=== PATIENT | female | born 1980 | race Caucasian/White ===

== ENCOUNTER 2021-08-04 10:51 | Inpatient (IN) ==
[2021-08-04 11:15] LABS: Hematocrit 43.6 % (35.3-44.9); Hemoglobin 14.3 g/dL (11.5-15.4); Mean Corpuscular HGB Conc 32.8 g/dL (31.6-35.5); Mean Corpuscular Hemoglobin 29.6 pg (28.0-33.3); Mean Corpuscular Volume 90.3 fL (83.0-100.0); Mean Platelet Volume 9.2 fL (9.4-12.4); Platelet Count 446 K/mcL (140-400); Red Blood Count 4.83 M/mcL (3.82-4.97); Red Cell Distribution Width 13.8 % (11.5-14.5); Segmented Neutrophils % 69.5 %; White Blood Count 11.2 K/mcL (4.3-11.1)
[2021-08-04 11:16] LABS: Basophils # 0.1 K/mcL (0.0-0.2); Basophils % 0.4 %; Eosinophils # 0.1 K/mcL (0.0-0.6); Eosinophils % 0.9 %; Immature Granulocytes % 0.2 % (0-4); Lymphocytes # 2.5 K/mcL (0.6-4.6); Lymphocytes % 22.7 %; Monocytes # 0.7 K/mcL (0.0-1.3); Monocytes % 6.3 %; Neutrophils # 7.8 K/mcL (1.6-8.9)
[2021-08-04 11:35] LABS: Acetaminophen < 10 mcg/mL (10-20); BUN/Creatinine Ratio 5 (6-26); Blood Urea Nitrogen 4 mg/dL (6-20); Calcium 8.2 mg/dL (8.6-10.3); Carbon Dioxide 22 mEq/L (23-29); Chloride 100 mEq/L (98-107); Ethanol < 10 mg/dL (Less than 10); Glucose 157 mg/dL (70-105); Osmolality,Calculated 286 (280-300); Potassium 3.2 mEq/L (3.5-5.1); Salicylate < 2.5 mg/dL (15.0-30.0); Sodium 138 mEq/L (136-145); eGFR For African Americans > 60 (> 60); eGFR For Non-African Americans > 60 (> 60)
[2021-08-04 11:48] LABS: Amphetamine Screen,Urine Negative ng/mL (Cutoff=1000); Barbiturate Screen,Urine Negative ng/mL (Cutoff=200); Benzodiazepines Screen,Urine Negative ng/mL (Cutoff=200); Cannabinoid Screen,Urine Negative ng/mL (Cutoff = 50); Cocaine Screen,Urine Negative ng/mL (Cutoff= 300); Opiate Screen,Urine Negative ng/mL (Cutoff=300); Phencyclidine Screen,Urine Negative ng/mL (Cutoff=25)
[2021-08-04 11:49] LABS: Bacteria,Urine Few per hpf (None-Few); Bilirubin,Urine Negative (Negative); Blood,Urine Trace (Negative); Clarity,Urine Turbid (Clear); Color,Urine Yellow (Yellow); Glucose,Urine (UA) 30 mg/dL (Normal); Ketones,Urine Negative (Negative); Leukocyte Esterase,Urine Large (Negative); Mucus,Urine Few per lpf (None-Few); Nitrite,Urine Negative (Negative); PH,Urine 6.5 pH Units (5.0-8.0); Protein,Urine >=300 mg/dL (Neg-Trace); Squamous Epithelial Cell,Urine Many per hpf (None-Few); WBC,Urine 50-100 per hpf (0-3)
[2021-08-04] MEDS ORDERED: Sulfamethoxazole/Trimeth DS 1 EACH TABLET PO ONE (12:00)
[2021-08-04 16:23] LABS: Influenza A PCR Negative (Negative); Influenza B PCR Negative (Negative); Resp. Syncytial Virus PCR Negative (Negative)
[2021-08-04 16:24] LABS: SARS-CoV-2 by PCR (In House) Positive (Negative)
[2021-08-04] MEDS ORDERED: Naloxone 0.4 MG/ML INJ IVP PRN (19:46)
[2021-08-04] MEDS ORDERED: Melatonin 3 MG TABLET PO PRN (19:46)
[2021-08-04] MEDS ORDERED: D5% in Water 1,000 ML IVC PRN (20:44)
[2021-08-04] MEDS ORDERED: Dextrose 4 GM Chewable Tablets PO PRN ×2 (20:44)
[2021-08-04] MEDS ORDERED: *HR* Dextrose 50 % in Water (Syg) 50 ML SYRINGE IVP PRN (20:44)
[2021-08-04] MEDS: Insulin LISPRO 300 UNITS/3 ML VIAL SUBQ SCH (22:43)
[2021-08-04] MEDS: Ondansetron ODT 4 MG TAB.RAPDIS SL PRN (22:48)
[2021-08-05 02:22] LABS: Hematocrit 37.3 % (35.3-44.9); Mean Corpuscular HGB Conc 33.2 g/dL (31.6-35.5); Mean Corpuscular Hemoglobin 29.5 pg (28.0-33.3); Mean Corpuscular Volume 88.6 fL (83.0-100.0); Mean Platelet Volume 9.2 fL (9.4-12.4); Platelet Count 355 K/mcL (140-400); Red Blood Count 4.21 M/mcL (3.82-4.97); Red Cell Distribution Width 13.8 % (11.5-14.5); White Blood Count 11.9 K/mcL (4.3-11.1)
[2021-08-05 02:26] LABS: Hemoglobin 12.4 g/dL (11.5-15.4)
[2021-08-05 03:20] LABS: BUN/Creatinine Ratio 7 (6-26); Blood Urea Nitrogen 5 mg/dL (6-20); Calcium 7.3 mg/dL (8.6-10.3); Carbon Dioxide 24 mEq/L (23-29); Chloride 103 mEq/L (98-107); Cholesterol 239 mg/dL (< 200); Glucose 144 mg/dL (70-105); HDL Cholesterol 34 mg/dL (40-59); LDL Cholesterol,Calculated 162 mg/dL (< 100); Magnesium 1.2 mg/dL (1.6-2.6); Osmolality,Calculated 288 (280-300); Phosphorous 3.4 mg/dL (2.7-4.5); Sodium 139 mEq/L (136-145); Triglycerides 213 mg/dL (< 150); eGFR For African Americans > 60 (> 60); eGFR For Non-African Americans > 60 (> 60)
[2021-08-05] MEDS ORDERED: *HR* Heparin 5,000 UNIT/ML VIAL ONE (04:25)
[2021-08-05] MEDS: *HR* Heparin 5,000 UNIT/ML VIAL SQ SCH ×2 (04:30→17:30)
[2021-08-05] MEDS: Ondansetron ODT 4 MG TAB.RAPDIS SL PRN (05:51)
[2021-08-05] MEDS: Acetaminophen 325 MG TABLET PO PRN (08:25)
[2021-08-05] MEDS: levoFLOXacin 750 MG TABLET PO SCH (08:25)
[2021-08-05] MEDS: clonazePAM 1 MG TABLET PO SCH ×3 (08:26→19:52)
[2021-08-05] MEDS: Metoprolol XL (24 HR) Succ 25 MG TAB.ER.24H PO SCH (08:26)
[2021-08-05] MEDS: Loratadine 10 MG TABLET PO SCH (08:27)
[2021-08-05] MEDS: Insulin LISPRO 300 UNITS/3 ML VIAL SUBQ SCH ×4 (08:28→19:44)
[2021-08-05] MEDS ORDERED: Sulfamethoxazole/Trimeth DS 1 EACH TABLET PO SCH (09:00)
[2021-08-05] MEDS ORDERED: Metoprolol XL (24 HR) Succ 25 MG TAB.ER.24H PO SCH (09:00)
[2021-08-05] MEDS: *HR* OxyCODONE Immed Rel 5 MG TABLET PO PRN (12:37)
[2021-08-05] MEDS ORDERED: rOPINIRole 1 MG TABLET PO PRN (15:05)
[2021-08-05] MEDS ORDERED: Diphenoxylate/Atropine 1 TAB TABLET PO PRN (15:05)
[2021-08-05] MEDS: Pregabalin 75 MG CAPSULE PO SCH (19:44)
[2021-08-06] MEDS: *HR* HYDROcodone/Acet 5/325 mg TABLET PO PRN ×2 (04:57→19:31)
[2021-08-06] MEDS: *HR* Heparin 5,000 UNIT/ML VIAL SQ SCH ×2 (04:58→17:19)
[2021-08-06 07:32] LABS: Basophils # 0.1 K/mcL (0.0-0.2); Basophils % 0.6 %; Eosinophils # 0.2 K/mcL (0.0-0.6); Eosinophils % 2.3 %; Hematocrit 38.2 % (35.3-44.9); Hemoglobin 12.1 g/dL (11.5-15.4); Immature Granulocytes % 0.4 % (0-4); Lymphocytes # 2.1 K/mcL (0.6-4.6); Lymphocytes % 21.8 %; Mean Corpuscular HGB Conc 31.7 g/dL (31.6-35.5); Mean Corpuscular Hemoglobin 29.2 pg (28.0-33.3); Monocytes # 0.9 K/mcL (0.0-1.3); Monocytes % 9.5 %; Neutrophils # 6.3 K/mcL (1.6-8.9); Platelet Count 290 K/mcL (140-400); Red Blood Count 4.15 M/mcL (3.82-4.97); Red Cell Distribution Width 14.2 % (11.5-14.5); Segmented Neutrophils % 65.4 %; White Blood Count 9.6 K/mcL (4.3-11.1)
[2021-08-06 07:38] LABS: BUN/Creatinine Ratio 8 (6-26); Blood Urea Nitrogen 6 mg/dL (6-20); Calcium 7.6 mg/dL (8.6-10.3); Carbon Dioxide 22 mEq/L (23-29); Chloride 104 mEq/L (98-107); Glucose 145 mg/dL (70-105); Magnesium 1.5 mg/dL (1.6-2.6); Osmolality,Calculated 280 (280-300); Potassium 3.4 mEq/L (3.5-5.1); Sodium 135 mEq/L (136-145); eGFR For African Americans > 60 (> 60); eGFR For Non-African Americans > 60 (> 60)
[2021-08-06] MEDS: Insulin LISPRO 300 UNITS/3 ML VIAL SUBQ SCH ×4 (08:48→21:21)
[2021-08-06] MEDS: levoFLOXacin 750 MG TABLET PO SCH (09:20)
[2021-08-06] MEDS: Metoprolol XL (24 HR) Succ 25 MG TAB.ER.24H PO SCH (09:20)
[2021-08-06] MEDS: Loratadine 10 MG TABLET PO SCH (09:21)
[2021-08-06] MEDS: Pregabalin 75 MG CAPSULE PO SCH ×2 (09:21→19:31)
[2021-08-06] MEDS: Magnesium Oxide 400 MG TABLET PO SCH ×2 (09:21→19:30)
[2021-08-06] MEDS: clonazePAM 1 MG TABLET PO SCH ×3 (09:21→19:31)
[2021-08-06] MEDS: Cholecalciferol (D-3) 1,000 UNIT (25MCG) TABLET PO SCH (09:21)
[2021-08-07] MEDS: *HR* Heparin 5,000 UNIT/ML VIAL SQ SCH ×2 (05:32→16:44)
[2021-08-07 06:15] LABS: BUN/Creatinine Ratio 11 (6-26); Blood Urea Nitrogen 10 mg/dL (6-20); Calcium 8.2 mg/dL (8.6-10.3); Carbon Dioxide 24 mEq/L (23-29); Chloride 105 mEq/L (98-107); Glucose 146 mg/dL (70-105); Magnesium 1.7 mg/dL (1.6-2.6); Osmolality,Calculated 288 (280-300); Phosphorous 3.5 mg/dL (2.7-4.5); Potassium 4.2 mEq/L (3.5-5.1); Sodium 138 mEq/L (136-145); eGFR For African Americans > 60 (> 60); eGFR For Non-African Americans > 60 (> 60)
[2021-08-07] MEDS: Metoprolol XL (24 HR) Succ 25 MG TAB.ER.24H PO SCH (09:17)
[2021-08-07] MEDS: clonazePAM 1 MG TABLET PO SCH ×3 (09:17→20:24)
[2021-08-07] MEDS: levoFLOXacin 750 MG TABLET PO SCH (09:18)
[2021-08-07] MEDS: Pregabalin 75 MG CAPSULE PO SCH ×2 (09:18→20:23)
[2021-08-07] MEDS: Magnesium Oxide 400 MG TABLET PO SCH ×2 (09:19→20:24)
[2021-08-07] MEDS: Loratadine 10 MG TABLET PO SCH (09:19)
[2021-08-07] MEDS: Cholecalciferol (D-3) 1,000 UNIT (25MCG) TABLET PO SCH (09:19)
[2021-08-07] MEDS: Insulin LISPRO 300 UNITS/3 ML VIAL SUBQ SCH ×4 (09:20→20:24)
[2021-08-07] MEDS: *HR* OxyCODONE Immed Rel 5 MG TABLET PO PRN ×2 (09:48)
[2021-08-07] MEDS: Furosemide 40 MG TABLET PO SCH (20:24)
[2021-08-07] MEDS: Sennosides/Docusate Sodium TABLET PO SCH (20:24)
[2021-08-08] MEDS: *HR* Heparin 5,000 UNIT/ML VIAL SQ SCH ×2 (04:51→17:22)
[2021-08-08] MEDS: Insulin LISPRO 300 UNITS/3 ML VIAL SUBQ SCH ×4 (09:18→21:39)
[2021-08-08] MEDS: clonazePAM 1 MG TABLET PO SCH ×3 (09:20→21:39)
[2021-08-08] MEDS: Pregabalin 75 MG CAPSULE PO SCH ×2 (09:20→21:38)
[2021-08-08] MEDS: Loratadine 10 MG TABLET PO SCH (09:21)
[2021-08-08] MEDS: Metoprolol XL (24 HR) Succ 25 MG TAB.ER.24H PO SCH (09:21)
[2021-08-08] MEDS: Furosemide 40 MG TABLET PO SCH (09:21)
[2021-08-08] MEDS: Sennosides/Docusate Sodium TABLET PO SCH ×2 (09:22→21:38)
[2021-08-08] MEDS: levoFLOXacin 750 MG TABLET PO SCH (09:22)
[2021-08-08] MEDS: Magnesium Oxide 400 MG TABLET PO SCH ×2 (09:22→21:39)
[2021-08-08] MEDS: Cholecalciferol (D-3) 1,000 UNIT (25MCG) TABLET PO SCH (09:23)
[2021-08-09] MEDS: *HR* Heparin 5,000 UNIT/ML VIAL SQ SCH ×2 (06:12→17:02)
[2021-08-09] MEDS: Insulin LISPRO 300 UNITS/3 ML VIAL SUBQ SCH ×4 (07:22→19:23)
[2021-08-09] MEDS: Pregabalin 75 MG CAPSULE PO SCH ×2 (08:50→19:22)
[2021-08-09] MEDS: Metoprolol XL (24 HR) Succ 25 MG TAB.ER.24H PO SCH (08:50)
[2021-08-09] MEDS: Cholecalciferol (D-3) 1,000 UNIT (25MCG) TABLET PO SCH (08:50)
[2021-08-09] MEDS: clonazePAM 1 MG TABLET PO SCH ×3 (08:50→19:22)
[2021-08-09] MEDS: Sennosides/Docusate Sodium TABLET PO SCH ×2 (08:50→19:22)
[2021-08-09] MEDS: Loratadine 10 MG TABLET PO SCH (08:50)
[2021-08-09] MEDS: Magnesium Oxide 400 MG TABLET PO SCH ×2 (08:51→19:23)
[2021-08-09] MEDS: Furosemide 40 MG TABLET PO SCH (08:51)
[2021-08-09] MEDS: Acetaminophen 325 MG TABLET PO PRN (12:13)
[2021-08-09] MEDS: *HR* HYDROcodone/Acet 5/325 mg TABLET PO PRN (23:09)
[2021-08-10] MEDS: *HR* Heparin 5,000 UNIT/ML VIAL SQ SCH ×2 (05:08→17:32)
[2021-08-10] MEDS: Insulin LISPRO 300 UNITS/3 ML VIAL SUBQ SCH ×4 (09:05→20:32)
[2021-08-10] MEDS: clonazePAM 1 MG TABLET PO SCH ×3 (09:05→20:39)
[2021-08-10] MEDS: Metoprolol XL (24 HR) Succ 25 MG TAB.ER.24H PO SCH (09:06)
[2021-08-10] MEDS: Loratadine 10 MG TABLET PO SCH (09:06)
[2021-08-10] MEDS: Furosemide 40 MG TABLET PO SCH (09:07)
[2021-08-10] MEDS: Magnesium Oxide 400 MG TABLET PO SCH ×2 (09:07→20:40)
[2021-08-10] MEDS: Cholecalciferol (D-3) 1,000 UNIT (25MCG) TABLET PO SCH (09:07)
[2021-08-10] MEDS: Pregabalin 75 MG CAPSULE PO SCH ×2 (09:07→20:39)
[2021-08-10] MEDS: Sennosides/Docusate Sodium TABLET PO SCH ×2 (09:07→20:39)
[2021-08-11] MEDS: *HR* Heparin 5,000 UNIT/ML VIAL SQ SCH (04:53)
[2021-08-11 06:20] VITALS: BP 123/73
[2021-08-11] MEDS: Metoprolol XL (24 HR) Succ 25 MG TAB.ER.24H PO SCH (09:55)
[2021-08-11] MEDS: Magnesium Oxide 400 MG TABLET PO SCH (09:56)
[2021-08-11] MEDS: Loratadine 10 MG TABLET PO SCH (09:57)
[2021-08-11] MEDS: Sennosides/Docusate Sodium TABLET PO SCH (09:58)
[2021-08-11] MEDS: clonazePAM 1 MG TABLET PO SCH ×2 (09:58→14:07)
[2021-08-11] MEDS: Furosemide 40 MG TABLET PO SCH (09:58)
[2021-08-11] MEDS: Pregabalin 75 MG CAPSULE PO SCH (09:58)
[2021-08-11] MEDS: Cholecalciferol (D-3) 1,000 UNIT (25MCG) TABLET PO SCH (09:58)
[2021-08-11 10:43] VITALS: PULSE 114; TEMP 97.6; O2SAT 96
[2021-08-11] MEDS: Insulin LISPRO 300 UNITS/3 ML VIAL SUBQ SCH ×2 (11:11→14:08)
== END 2021-08-11 18:39 | DRG 137 ==
LOC: EMEROOARM 10:51 → 3BNU 19:39 → SUATTDRO 19:39 → 3BNU 22:18
PROVIDERS: ADMIT Family Medicine; ATTEND Internal Medicine

== ENCOUNTER 2021-10-04 19:16 | Observation (INO) ==
[2021-10-04 20:09] LABS: Basophils # 0.1 K/mcL (0.0-0.2); Basophils % 0.4 %; Eosinophils # 0.1 K/mcL (0.0-0.6); Eosinophils % 0.4 %; Hematocrit 38.3 % (35.3-44.9); Hemoglobin 12.7 g/dL (11.5-15.4); Immature Granulocytes % 0.4 % (0-4); Lymphocytes # 2.5 K/mcL (0.6-4.6); Lymphocytes % 15.2 %; Mean Corpuscular HGB Conc 33.2 g/dL (31.6-35.5); Mean Corpuscular Hemoglobin 28.9 pg (28.0-33.3); Mean Corpuscular Volume 87.2 fL (83.0-100.0); Mean Platelet Volume 9.2 fL (9.4-12.4); Monocytes # 0.8 K/mcL (0.0-1.3); Monocytes % 4.5 %; Neutrophils # 13.3 K/mcL (1.6-8.9); Platelet Count 378 K/mcL (140-400); Red Blood Count 4.39 M/mcL (3.82-4.97); Red Cell Distribution Width 13.4 % (11.5-14.5); Segmented Neutrophils % 79.1 %; White Blood Count 16.7 K/mcL (4.3-11.1)
[2021-10-04 20:41] LABS: Bilirubin,Urine Negative (Negative); Blood,Urine Negative (Negative); Clarity,Urine Clear (Clear); Color,Urine Yellow (Yellow); Glucose,Urine (UA) Normal (Normal); Hyaline Casts,Urine Few per lpf (None Seen); Ketones,Urine Trace mg/dL (Negative); Leukocyte Esterase,Urine Small (Negative); Mucus,Urine Few per lpf (None-Few); Nitrite,Urine Negative (Negative); PH,Urine 6.5 pH Units (5.0-8.0); Protein,Urine 200 mg/dL (Neg-Trace); RBC,Urine 0-3 per hpf (0-3); Specific Gravity,Urine 1.022 (1.010-1.025); Squamous Epithelial Cell,Urine Moderate per hpf (None-Few); Urobilinogen,Urine Normal (Normal)
[2021-10-04 20:59] LABS: Amphetamine Screen,Urine Negative ng/mL (Cutoff=1000); Barbiturate Screen,Urine Negative ng/mL (Cutoff=200); Benzodiazepines Screen,Urine Negative ng/mL (Cutoff=200); Cannabinoid Screen,Urine Negative ng/mL (Cutoff = 50); Cocaine Screen,Urine Negative ng/mL (Cutoff= 300); Opiate Screen,Urine Negative ng/mL (Cutoff=300); Phencyclidine Screen,Urine Negative ng/mL (Cutoff=25)
[2021-10-04 21:23] LABS: Acetaminophen < 10 mcg/mL (10-20); BUN/Creatinine Ratio 13 (6-26); Blood Urea Nitrogen 11 mg/dL (6-20); Carbon Dioxide 19 mEq/L (23-29); Chloride 104 mEq/L (98-107); Ethanol < 10 mg/dL (Less than 10); Glucose 199 mg/dL (70-105); Osmolality,Calculated 295 (280-300); Potassium 3.1 mEq/L (3.5-5.1); Salicylate < 2.5 mg/dL (15.0-30.0); Sodium 140 mEq/L (136-145); eGFR For African Americans > 60 (> 60); eGFR For Non-African Americans > 60 (> 60)
[2021-10-04] MEDS ORDERED: Isovue-370 500 ML BOTTLE IVP ONE (22:13)
[2021-10-04 23:09] LABS: Alanine Aminotransferase 19 Units/L (7-52); Alkaline Phosphatase 69 Units/L (34-104); Aspartate Amino Transferase 24 Units/L (13-39); Bilirubin,Indirect 0.6 mg/dL (0.0-1.0); Bilirubin,Total 0.6 mg/dL (0.3-1.0); Globulin 3.9 g/dL (2.4-3.5); Lipase 20 Units/L (11-82); Total Protein 7.9 g/dL (6.4-8.9)
[2021-10-05 00:50] LABS: Troponin I < 0.03 ng/mL (< 0.04)
[2021-10-05] MEDS ORDERED: levoFLOXacin 750 MG TABLET PO ONE (03:36)
[2021-10-05 03:46] LABS: Influenza A PCR Negative (Negative); Influenza B PCR Negative (Negative); Resp. Syncytial Virus PCR Negative (Negative); SARS-CoV-2 by PCR (In House) Negative (Negative)
[2021-10-05 06:18] LABS: VBG HCO3 23 mEq/L (21-27); VBG PCO2 34 mmHg (41-51); VBG PH 7.44 pH Units (7.32-7.42); VBG PO2 141 mmHg (25-50)
[2021-10-05] MEDS ORDERED: Naloxone 0.4 MG/ML INJ IVP PRN (08:11)
[2021-10-05] MEDS ORDERED: 0.9 % Sodium Chloride w KCl 20 MEQ/1,000 ML MLS IVC SCH (08:15)
[2021-10-05 09:06] LABS: Basophils # 0.1 K/mcL (0.0-0.2); Basophils % 0.4 %; Eosinophils % 0.3 %; Hematocrit 36.8 % (35.3-44.9); Hemoglobin 12.4 g/dL (11.5-15.4); Immature Granulocytes % 0.4 % (0-4); Lymphocytes # 2.7 K/mcL (0.6-4.6); Lymphocytes % 19.4 %; Mean Corpuscular HGB Conc 33.7 g/dL (31.6-35.5); Mean Corpuscular Hemoglobin 29.2 pg (28.0-33.3); Mean Corpuscular Volume 86.8 fL (83.0-100.0); Mean Platelet Volume 9.1 fL (9.4-12.4); Monocytes # 0.8 K/mcL (0.0-1.3); Monocytes % 5.5 %; Neutrophils # 10.2 K/mcL (1.6-8.9); Platelet Count 386 K/mcL (140-400); Red Blood Count 4.24 M/mcL (3.82-4.97); Red Cell Distribution Width 13.3 % (11.5-14.5); White Blood Count 13.7 K/mcL (4.3-11.1)
[2021-10-05] MEDS ORDERED: D5% in Water 1,000 ML IVC PRN (09:56)
[2021-10-05] MEDS ORDERED: *HR* Dextrose 50 % in Water (Syg) 50 ML SYRINGE IVP PRN (09:56)
[2021-10-05] MEDS ORDERED: Dextrose 4 GM Chewable Tablets PO PRN ×2 (09:56)
[2021-10-05] MEDS: Metoprolol XL (24 HR) Succ 25 MG TAB.ER.24H PO SCH (09:58)
[2021-10-05] MEDS: 0.9 % Sodium Chloride 1,000 ML IVC SCH (09:59)
[2021-10-05] MEDS ORDERED: cefTRIAXone 1,000 MG in 0.9 % Sodium Chloride Mini Bag 100 ML IVPB SCH (10:00)
[2021-10-05 10:34] LABS: Alanine Aminotransferase 18 Units/L (7-52); Albumin 3.8 g/dL (3.5-5.7); Alkaline Phosphatase 67 Units/L (34-104); Aspartate Amino Transferase 25 Units/L (13-39); BUN/Creatinine Ratio 12 (6-26); Bilirubin,Total 0.6 mg/dL (0.3-1.0); Blood Urea Nitrogen 9 mg/dL (6-20); Calcium 7.6 mg/dL (8.6-10.3); Carbon Dioxide 22 mEq/L (23-29); Chloride 104 mEq/L (98-107); Globulin 3.7 g/dL (2.4-3.5); Glucose 128 mg/dL (70-105); Magnesium 0.9 mg/dL (1.6-2.6); Osmolality,Calculated 288 (280-300); Phosphorous 4.9 mg/dL (2.7-4.5); Potassium 3.5 mEq/L (3.5-5.1); Sodium 139 mEq/L (136-145); Total Protein 7.5 g/dL (6.4-8.9); eGFR For African Americans > 60 (> 60); eGFR For Non-African Americans > 60 (> 60)
[2021-10-05] MEDS ORDERED: Ondansetron 4 MG/2 ML VIAL IVP PRN (10:59)
[2021-10-05] MEDS: Insulin LISPRO 300 UNITS/3 ML VIAL SUBQ SCH ×2 (12:10→17:25)
[2021-10-05 14:50] LABS: Estimated Average Glucose 177 mg/dl; Hemoglobin A1C 7.8 %
[2021-10-05] MEDS: MetroNIDAZOLE 500 MG/100 ML 500 MG/100 ML BAG IVPB SCH (17:27)
[2021-10-05] MEDS: *HR* Heparin 5,000 UNIT/ML VIAL SQ SCH (17:29)
[2021-10-05] MEDS ORDERED: Insulin LISPRO 300 UNITS/3 ML VIAL SUBQ SCH (21:00)
[2021-10-05] MEDS: Nystatin POWDER 30 GM BOTTLE TP SCH (22:30)
[2021-10-06] MEDS: 0.9 % Sodium Chloride 1,000 ML IVC SCH ×2 (01:35→09:07)
[2021-10-06] MEDS: MetroNIDAZOLE 500 MG/100 ML 500 MG/100 ML BAG IVPB SCH ×2 (01:35→09:09)
[2021-10-06] MEDS: *HR* Heparin 5,000 UNIT/ML VIAL SQ SCH (06:06)
[2021-10-06 06:25] VITALS: BP 149/81; PULSE 86; TEMP 97.6; O2SAT 94
[2021-10-06 06:33] LABS: BUN/Creatinine Ratio 14 (6-26); Blood Urea Nitrogen 9 mg/dL (6-20); Calcium 7.5 mg/dL (8.6-10.3); Carbon Dioxide 19 mEq/L (23-29); Chloride 106 mEq/L (98-107); Glucose 125 mg/dL (70-105); Magnesium 1.8 mg/dL (1.6-2.6); Osmolality,Calculated 288 (280-300); Potassium 4.2 mEq/L (3.5-5.1); Sodium 139 mEq/L (136-145); eGFR For African Americans > 60 (> 60); eGFR For Non-African Americans > 60 (> 60)
[2021-10-06 07:26] LABS: Hematocrit 38.4 % (35.3-44.9); Hemoglobin 12.3 g/dL (11.5-15.4); Mean Corpuscular Hemoglobin 29.1 pg (28.0-33.3); Mean Corpuscular Volume 90.8 fL (83.0-100.0); Mean Platelet Volume 9.6 fL (9.4-12.4); Platelet Count 374 K/mcL (140-400); Red Blood Count 4.23 M/mcL (3.82-4.97); Red Cell Distribution Width 13.5 % (11.5-14.5)
[2021-10-06] MEDS: Insulin LISPRO 300 UNITS/3 ML VIAL SUBQ SCH (08:07)
[2021-10-06] MEDS ORDERED: rOPINIRole 1 MG TABLET PO PRN (08:56)
[2021-10-06] MEDS ORDERED: ESTRADIOL 2 MG PO SCH (09:00)
[2021-10-06] MEDS ORDERED: Loratadine 10 MG TABLET PO SCH (09:00)
[2021-10-06] MEDS ORDERED: Metoprolol XL (24 HR) Succ 25 MG TAB.ER.24H PO SCH (09:00)
[2021-10-06] MEDS: Metoprolol XL (24 HR) Succ 25 MG TAB.ER.24H PO SCH (09:12)
[2021-10-06] MEDS: Nystatin POWDER 30 GM BOTTLE TP SCH (09:22)
[2021-10-06] MEDS ORDERED: cefTRIAXone 1,000 MG in 0.9 % Sodium Chloride Mini Bag 100 ML IVPB SCH (10:00)
[2021-10-06] MEDS ORDERED: lamoTRIgine 25 MG TABLET PO SCH (18:00)
[2021-10-07] MEDS ORDERED: Pregabalin 75 MG CAPSULE PO SCH (09:00)
== END 2021-10-06 11:33 ==
LOC: EMEROOARM 19:16 → 3BNU 19:16 → SUATTDRO 10-05 08:02 → 3BNU 10-05 09:48
PROVIDERS: ADMIT Internal Medicine; ATTEND Internal Medicine